=== PATIENT | male | born 1975 ===

== ENCOUNTER 2018-06-15 11:05 | Emergency (ER) | payer OTHER ==
[~2018-06-15] VITALS: Ht 180.3 cm; Wt 113.4 kg
== END 2018-06-15 16:12 | disposition home or self-care (01) ==
LOC: ER 11:05
DX: B34.9 Viral infection, unspecified (principal); E86.0 Dehydration

== ENCOUNTER 2018-06-19 08:16 | Emergency (ER) | payer OTHER ==
[~2018-06-19] VITALS: Ht 180.3 cm; Wt 111.1 kg
== END 2018-06-19 09:06 | disposition home or self-care (01) ==
LOC: ER 08:16
DX: J11.1 Influenza due to unidentified influenza virus with other respiratory manifestations (principal)